=== PATIENT | male | born 1980 | race Caucasian/White ===

== ENCOUNTER 2016-07-21 11:31 | Emergency (ER) | payer MEDICAID ==
[~2016-07-21] VITALS: Ht 185.4 cm; Wt 117.9 kg
[2016-07-21 11:38] VITALS: BP_SYST 120
[2016-07-21] MEDS ORDERED: CEPH-568 (11:45)
--- NOTE | 2016-07-21 12:04 | NUR ---
Pt brought to room 3 for nausea, endorsed care to Margoth KHAN.
[2016-07-21] MEDS ORDERED: NACL 0.9% 1,000 ML IV SCH (12:18)
[2016-07-21] MEDS ORDERED: DIPHENHYDRAMINE INJ 50 MG/ML VIAL IVP ONE ×2 (12:30→16:15)
--- NOTE | 2016-07-21 12:32 | NUR ---
ER at bedside examining patient.
--- NOTE | 2016-07-21 12:33 | NUR ---
# 20 gauge angiocath placed to LFA . Use of asceptic technique. Opsite placed over site. Blood return noted.
--- NOTE | 2016-07-21 12:33 | NUR ---
Pt c/o nausea,vomiting,skin itching since last night. skin hot touch.
--- NOTE | 2016-07-21 12:34 | NUR ---
transport to ct scan of abdomen.
[2016-07-21 13:30] LABS: CALCIUM 8.9 mg/dL (8.4-11.0); CREATININE 1.23 mg/dL (0.55-1.30)
[2016-07-21 13:34] LABS: MEAN CORPUSCULAR HEMOGLOBIN 29 pg (27-31)
[2016-07-21 13:35] LABS: C-REACTIVE PROTEIN QUANT 3.4 mg/dL (0-0.5); TOTAL BILIRUBIN 0.7 mg/dL (0.0-1.0); TOTAL PROTEIN, SERUM 7.5 g/dL (6.4-8.3)
[2016-07-21 13:37] LABS: HEMATOCRIT 42.3 % (36-54); HEMOGLOBIN 14.3 g/dL (14.0-18.0); MEAN CORPUSCULAR HGB CONC 34 % (32-36); MEAN CORPUSCULAR VOLUME 85 fL (79.0-98.0); PLATELET COUNT (AUTO) 284 K/uL (130-430); RED BLOOD CELL COUNT(AUTO) 4.99 MIL/uL (4.2-6.2); WHITE BLOOD COUNT (AUTO) 15.5 K/uL (4.8-10.8)
[2016-07-21 14:06] LABS: ATYPICAL LYMPHOCYTES % 0 % (0-0); BAND % (MANUAL) 2 % (0-6); EOSINOPHILS % (MANUAL) 0 % (0-7); LYMPHOCYTES % (MANUAL) 9 % (20-46); MONOCYTES % (MANUAL) 2 % (0-11)
[2016-07-21 14:07] LABS: BASOPHILS % (MANUAL) 0 % (0-2)
[2016-07-21 14:25] LABS: BILIRUBIN,URINE NEGATIVE (NEGATIVE); BLOOD, URINE NEGATIVE (NEGATIVE); CLARITY/URINE CLEAR (CLEAR); COLOR,URINE YELLOW (YELLOW); GLUCOSE,URINE NEGATIVE (NEGATIVE); KETONES,URINE NEGATIVE (NEGATIVE); LEUKOCYTE ESTERASE ,URINE NEGATIVE (NEGATIVE); NITRITE, URINE NEGATIVE (NEGATIVE); PH,URINE 5.5 (5.0-8.0); PROTEIN URINE NEGATIVE (NEGATIVE); UROBILINOGEN,URINE 0.2 (0.2-1.0)
[2016-07-21] MEDS ORDERED: KETOROLAC TROMETHAMINE 30 MG VIAL IVP ONE (14:30)
[2016-07-21] MEDS ORDERED: AMPICILLIN SODIUM/SULBACTAM NA 3 GM in NS 100 ML IV ONE (14:30)
[2016-07-21] MEDS ORDERED: NACL 0.9% 1,000 ML IV ONE (14:30)
[2016-07-21] MEDS ORDERED: AMPICILLIN SODIUM/SULBACTAM NA 3 GM VIAL ONE (14:45)
[2016-07-21 15:05] LABS: ERYTHROCYTE SEDIMENTATION RATE 10 MM/HR (0-15)
--- NOTE | 2016-07-21 16:13 | NUR ---
pt able to ambulate without difficulty.
[2016-07-21 16:28] VITALS: BP_SYST 116
--- NOTE | 2016-07-21 16:28 | NUR ---
Patient given written and verbal discharge instructions and verbalizes understanding. ER MD discussed with patient the results and treatment provided. Patient in stable condition. ID arm band removed. IV catheter removed intact and dressing applied, no active bleeding. Rx of CLINDAMYCIN AND BENADRYL given. Patient educated on pain management and to follow up with PMD. Pain Scale . Opportunity for questions provided and answered.
== END 2016-07-21 16:28 | disposition home or self-care (01) ==
LOC: SED 11:31
DX: L03.115 Cellulitis of right lower limb (principal); L53.0 Toxic erythema; T36.1X5A Adverse effect of cephalosporins and other beta-lactam antibiotics, initial encounter; Z87.442 Personal history of urinary calculi; Y92.89 Other specified places as the place of occurrence of the external cause
CPT/HCPCS: 36415; 71010; 74176; 80053; 81003; 82550; 83605; 84484; 85007; 85027; 85651; 86140; 87040; 96361; 96365; 96375; 99285; J0295; J1200; J1885; J7030